=== PATIENT | male | born 1955 | race Caucasian/White ===

== ENCOUNTER → 2019-12-12 | Outpatient (CLI) | payer BC ==
--- NOTE | 2019-12-12 14:23 | REP ---
INDICATION: AMOL PRIMARY OA OF KNEE. COMPARISON: None. TECHNIQUE: Multiple sequences obtained in the axial, coronal and sagittal planes. FINDINGS: Menisci: There is tear of the undersurface of the posterior horn of the medial meniscus. I do not see a discrete tear of the lateral meniscus. Cruciate ligaments: Intact. Collateral ligaments: Intact. Extensor mechanism/patellar retinacula: Intact. Cartilage: Mild to moderate spurring is seen of the superior pole of the patella and there is mild spurring of the femoral condyles and tibial plateaus. There is moderately severe diffuse chondromalacia of the patella with some minor subchondral marrow edema in the patella. There is moderate diffuse chondromalacia of the medial femoral condyle and tibial plateau mild subchondral marrow edema of the anterior aspect of the medial femoral condyle with moderately severe chondromalacia in that region. There is mild diffuse chondromalacia along the lateral femoral condyle tibial plateau, more moderate along the anterior aspect of the lateral femoral condyle. Bone marrow: Areas of subchondral marrow edema as above. There is a well-defined lobulated lesion in the distal end of the femur which is predominantly hyperintense on T2 weighted images, with some hypointense areas internally. This probably represents an enchondroma. It measures approximately 2 cm in diameter. Joint fluid: There is a moderate joint effusion. Popliteal region: There is a thin Tamez's cyst medially. Couple of thin internal septations are seen, and I suspect a small cartilaginous or calcific body in the inferior aspect of the cyst 5 mm in diameter. IMPRESSION: Undersurface tear posterior horn medial meniscus. Cruciate and collateral ligaments intact. Diffuse chondromalacia as discussed above, most significantly of the patella, with mild subchondral marrow edema. Well-defined lobulated lesion in the distal end of the femur is most consistent with an enchondroma. Moderate joint effusion. Thin complex Tamez's cyst medially. <Electronically signed by Nolan De La Cruz > 12/12/19 [id number]
== END ==
LOC: M RAD 10:44
PROVIDERS: ATTEND Physician Assistant
DX: M17.9 Osteoarthritis of knee, unspecified (principal)

== ENCOUNTER → 2020-01-30 | Outpatient (CLI) | payer BC ==
[~2020-01-30] MED LIST: ATOR1TAB19 PO; CIDA500T2 PO; DICL1GEL3 TOP; ECOT81TA5 PO; METF-839 PO; MULT-40 PO; TELM1TAB3 PO
== END ==
LOC: M LABSMTC 11:48
PROVIDERS: ATTEND Anesthesiology
DX: Z11.59 Encounter for screening for other viral diseases (principal)

== ENCOUNTER 2020-02-04 12:01 | Day surgery (SDC) | payer BC ==
[~2020-02-04] VITALS: Ht 182.9 cm; Wt 149.7 kg
[~2020-02-04 12:01] MED LIST changes: +ceFAZolin SOD 1 GM in D5W MINI-BAG PLUS 50 ML IV ONE; +ceFAZolin SOD 2 GM in IV 1 EA IV ONE
[2020-02-04] MEDS ORDERED: LR 1,000 ML IV ONE (13:00)
[2020-02-04] MEDS ORDERED: ROPIvacaine 0.5% 30ML INJECTION (J2795 PER 1MG) As Ordered ONE (13:11)
[2020-02-04] MEDS ORDERED: ONDANSETRON 4MG/2ML VIAL As Ordered ONE (13:35)
[2020-02-04] MEDS ORDERED: METOCLOPRAMIDE INJ 10MG/2ML VIAL (J2765 PER 1) As Ordered ONE (13:35)
[2020-02-04] MEDS ORDERED: dexameTHASONE 4 MG/ML 1ML VIAL (J1100 PER 1MG) As Ordered ONE (13:35)
[2020-02-04] MEDS ORDERED: MIDAZOLAM INJ 2MG/2ML VIAL (J2250 PER 1MG) As Ordered ONE (13:35)
[2020-02-04] MEDS ORDERED: fentaNYL 100 MCG/2 ML INJECTION (J3010) As Ordered ONE ×2 (13:35→13:53)
[2020-02-04] MEDS ORDERED: propofoL 200 MG/20 ML VIAL As Ordered ONE (13:35)
[2020-02-04] MEDS ORDERED: LIDOCAINE 2% 100MG/5ML SDV (FOR ANES.) As Ordered ONE (13:35)
[2020-02-04] MEDS ORDERED: ePHEDrine SULFATE 25 MG/5 ML(5MG/ML) SYRINGE As Ordered ONE (13:36)
[2020-02-04] MEDS ORDERED: ceFAZolin 2 GM/D5W 50 ML IV BAG (J0690 PER 500MG) As Ordered ONE (13:48)
[2020-02-04] MEDS ORDERED: TRIAMCINOLONE ACETONIDE SUSP 40 MG/ML VIAL (J3301) As Ordered ONE (13:56)
[2020-02-04] MEDS ORDERED: DESFLURANE 240 ML INHALANT As Ordered ONE (14:06)
--- NOTE | 2020-02-04 14:57 | RO ---
OPERATIVE NOTE DATE OF OPERATION: 02/04/2020 PREOPERATIVE DIAGNOSIS: Right knee osteoarthritis and medial meniscus tear. POSTOPERATIVE DIAGNOSIS: Right knee osteoarthritis, medical meniscus tear, and lateral meniscus tear. PROCEDURES: Right knee operative arthroscopy, partial medial and lateral meniscectomy, excision of plica and debridement. SURGEON: Vikas Bailon M.D. ANESTHESIA: Spinal. ESTIMATED BLOOD LOSS: Minimal. COMPLICATIONS: None. INDICATIONS: This is a 64-year-old with morbid obesity who had persistent medial sided knee pain. MRI scan was consistent with arthritis and medial meniscus tear. He wished to go ahead with arthroscopic evaluation having failed conservative management. He understood the nature of this; the risk of bleeding, infection, damage to nerve and vessels, persistent pain, blood clots, and medical problems among others. DESCRIPTION OF PROCEDURE: The patient was taken to the operating room and placed in the supine position after spinal anesthesia was induced. The right lower extremity was prepped and draped in the usual sterile fashion. Time-out was performed, tourniquet was inflated, and I created inferomedial and inferolateral portals per routine in the right knee. Identified the patellofemoral joint. There were some grade 3-4 changes fairly diffuse throughout. I proceeded down the medial and lateral gutters. There was a large medial plica that was excised with a shaver. The medial compartment was identified and again, there was some moderate to significant arthritic change throughout with a posterior horn and mid-body medial meniscus tear that was resected with a shaver back to a stable rim. The notch was identified. The ACL appeared to be intact, but there were some large osteophytes encroaching on the notch. The lateral compartment was identified and there was a central and posterior horn lateral meniscus tear that were debrided. I then reexamined the entire joint, removed the instrumentation, and closed the portals using 4-0 nylon suture. I injected 30 mL of ropiacaine with 20 mg of Kenalog. Once the sterile dressing was applied and tourniquet was deflated, he was taken to the recovery room in stable condition. There were no known complications. The plan will be routine postop. [facility]
[2020-02-04] MEDS ORDERED: MORPHINE 2 MG/ML 1ML VIAL (J2270) IV PRN (15:00)
[2020-02-04] MEDS ORDERED: ACETAMINOPH W/CODEINE #3 TAB UD PO PRN ×2 (15:00)
[2020-02-04] MEDS ORDERED: PERCOCET 5MG/325MG TAB PO PRN (15:00)
[2020-02-04] MEDS ORDERED: ONDANSETRON 4MG/2ML VIAL IV PRN (15:00)
[2020-02-04] MEDS ORDERED: fentaNYL 100 MCG/2 ML INJECTION (J3010) IV PRN (15:00)
[2020-02-04] MEDS ORDERED: LR 1,000 ML IV SCH ×2 (15:00)
[2020-02-04 15:45] VITALS: BP 170/86
== END 2020-02-04 15:45 | disposition home or self-care (01) ==
LOC: M SDC 12:01
PROVIDERS: ATTEND Orthopaedic Surgery
DX: M17.11 Unilateral primary osteoarthritis, right knee (principal); M23.261 Derangement of other lateral meniscus due to old tear or injury, right knee; M23.231 Derangement of other medial meniscus due to old tear or injury, right knee; I10 Essential (primary) hypertension; E78.5 Hyperlipidemia, unspecified; G47.33 Obstructive sleep apnea (adult) (pediatric); R73.03 Prediabetes; Z79.84 Long term (current) use of oral hypoglycemic drugs; Z79.899 Other long term (current) drug therapy; E66.01 Morbid (severe) obesity due to excess calories
CPT/HCPCS: 29880; J0690; J1100; J2250; J2405; J2765; J2795; J3010; J3301

== ENCOUNTER → 2021-11-22 | Outpatient (CLI) | payer BC ==
[~2021-11-22] MED LIST changes: +KP F1200 PO; +METF-877 PO; +TELM1TAB PO; -TELM1TAB3 PO; +ZYRT10TA12 PO; -ceFAZolin SOD 1 GM in D5W MINI-BAG PLUS 50 ML IV ONE; -ceFAZolin SOD 2 GM in IV 1 EA IV ONE
== END ==
LOC: M LABSMTC 09:06
PROVIDERS: ATTEND Anesthesiology
DX: Z01.812 Encounter for preprocedural laboratory examination (principal); Z11.52 Encounter for screening for COVID-19

== ENCOUNTER 2021-11-25 07:47 | Day surgery (SDC) | payer BC ==
[~2021-11-25] VITALS: Ht 182.9 cm; Wt 147.8 kg
[2021-11-25] MEDS: NS 1,000 ML IV ONE (08:24)
[2021-11-25] MEDS ORDERED: propofoL 200 MG/20 ML VIAL As Ordered ONE (09:14)
[2021-11-25] MEDS ORDERED: LIDOCAINE 2% 100MG/5ML SDV (FOR ANES.) As Ordered ONE (09:14)
[2021-11-25 09:45] VITALS: BP 119/58
== END 2021-11-25 09:57 | disposition home or self-care (01) ==
LOC: M OPP 07:47
PROVIDERS: ATTEND Internal Medicine Gastroenterology
DX: Z12.11 Encounter for screening for malignant neoplasm of colon (principal); K64.0 First degree hemorrhoids; K57.30 Diverticulosis of large intestine without perforation or abscess without bleeding; Z79.02 Long term (current) use of antithrombotics/antiplatelets; Z79.82 Long term (current) use of aspirin; Z79.84 Long term (current) use of oral hypoglycemic drugs; E78.00 Pure hypercholesterolemia, unspecified; E11.9 Type 2 diabetes mellitus without complications; Z87.891 Personal history of nicotine dependence